=== PATIENT | male | born 1960 | race American Indian/Alaskan Native ===

== ENCOUNTER 2019-01-19 12:54 | Emergency (ER) | payer OTHER ==
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
[2019-01-19] MEDS ORDERED: HYDROcodone/ACETAMINOPHEN 5-325 MG TAB PO ONE (13:44)
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
[2019-01-19 14:44] VITALS: BP 146/86
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
== END 2019-01-19 16:22 | disposition home or self-care (01) ==
LOC: ED 12:54
DX: M54.89 Other dorsalgia (principal); M25.511 Pain in right shoulder; M25.512 Pain in left shoulder; M25.561 Pain in right knee; F17.200 Nicotine dependence, unspecified, uncomplicated; V89.2XXA Person injured in unspecified motor-vehicle accident, traffic, initial encounter; Y93.89 Activity, other specified; Y92.410 Unspecified street and highway as the place of occurrence of the external cause; Y99.8 Other external cause status
CPT/HCPCS: 70450; 72072; 72100; 82962